=== PATIENT | female | born 1990 | race Caucasian/White ===

== ENCOUNTER 2020-10-22 15:24 | Emergency (ER) | payer MEDICAID ==
[~2020-10-22] VITALS: Ht 154.9 cm; Wt 39.6 kg
[2020-10-22] MEDS ORDERED: LIDO20SO16 PO (16:23)
[2020-10-22] MEDS ORDERED: AMOX-422 PO (16:23)
[2020-10-22] MEDS ORDERED: LIDOcaine Viscous 15ml cup MM ONE (16:50)
[2020-10-22 17:08] VITALS: BP 111/81
== END 2020-10-22 17:09 | disposition home or self-care (01) ==
LOC: ER 15:24
DX: K04.7 Periapical abscess without sinus (principal); K08.89 Other specified disorders of teeth and supporting structures; Z79.2 Long term (current) use of antibiotics; Z79.899 Other long term (current) drug therapy
CPT/HCPCS: 99283